=== PATIENT | female | born 1970 | race Hispanic/Latino ===

== ENCOUNTER 2021-04-25 01:03 | Emergency (ER) | payer SELFPAY ==
[~2021-04-25] VITALS: Ht 162.6 cm; Wt 81.6 kg
[2021-04-25] MEDS ORDERED: Morphine 4mg Syringe 4 MG/ML INJ IV STA (01:09)
[2021-04-25] MEDS ORDERED: SODIUM CHLORIDE 0.9% 1000ML 1,000 ML IV STA (01:09)
[2021-04-25] MEDS ORDERED: ONDANSETRON HCL INJ 2MG/ML 2ML 2 MG/ML VIAL IV STA (01:09)
[2021-04-25] MEDS ORDERED: Morphine 4mg Syringe 4 MG/ML INJ ONE (01:23)
[2021-04-25] MEDS ORDERED: ONDANSETRON HCL INJ 2MG/ML 2ML 2 MG/ML VIAL ONE (01:24)
[2021-04-25] MEDS ORDERED: SODIUM CHLORIDE 0.9% 1000ML 1,000 ML ONE (01:25)
[2021-04-25 01:26] LABS: BASOPHILS % 0.5 % (0.0-1.0); EOSINOPHILS # (AUTO) 0.1 (0.0-0.4); EOSINOPHILS % 0.8 % (0.0-6.0); HEMATOCRIT 42.5 % (34.2-44.1); HEMOGLOBIN 14.4 g/dL (12.0-16.0); LYMPHOCYTES # (AUTO) 1.4 (1.0-3.2); LYMPHOCYTES % 15.9 % (18.0-39.1); MEAN CORPUSCULAR HEMOGLOBIN 31.2 pg (28-32); MEAN CORPUSCULAR HGB CONC 33.9 g/dL (31-35); MONOCYTES # (AUTO) 0.6 (0.2-0.8); MONOCYTES % 6.8 % (4.4-11.3); NEUTROPHILS # (AUTO) 6.5 (2.1-6.9); NEUTROPHILS % 75.7 % (38.7-80.0); PLATELET COUNT 236 x10e3/uL (140-360); RED BLOOD COUNT 4.62 x10e6/uL (3.6-5.1)
[2021-04-25 01:46] LABS: ALBUMIN 4.1 g/dL (3.5-5.0); ALBUMIN/GLOBULIN RATIO 1.1 (0.8-2.0); ANION GAP 14.7 mmol/L (8-16); CREATININE, SERUM 1.05 mg/dL (0.57-1.11); POTASSIUM 3.7 mmol/L (3.5-5.1)
[2021-04-25 01:52] LABS: CREATINE KINASE MB 2.2 ng/mL (0-5.0)
[2021-04-25] MEDS ORDERED: KETOROLAC TROMETHAMINE 30 MG/ML VIAL IV STA (02:25)
[2021-04-25] MEDS ORDERED: FLOMAX0.4 MG PO (02:34)
[2021-04-25] MEDS ORDERED: ONDANSETRON ODT4 MG PO (02:34)
[2021-04-25] MEDS ORDERED: MOTRIN200 MG PO (02:34)
[2021-04-25] MEDS ORDERED: KETOROLAC TROMETHAMINE 30 MG/ML VIAL ONE (02:45)
== END 2021-04-25 03:07 | disposition home or self-care (01) ==
LOC: ER 01:17
DX: R10.12 Left upper quadrant pain (principal); N13.2 Hydronephrosis with renal and ureteral calculous obstruction; R11.2 Nausea with vomiting, unspecified
CPT/HCPCS: 36415; 74177; 80053; 82550; 82553; 83690; 83880; 84484; 85025; 93005; 99284; J1885; J2270; J2405; J7030

== ENCOUNTER 2025-01-22 18:28 | Emergency (ER) | payer SELFPAY ==
[~2025-01-22] VITALS: Ht 162.6 cm; Wt 81.6 kg
[~2025-01-22 18:28] MED LIST: FLOMAX0.4 MG PO; MOTRIN200 MG PO; ONDANSETRON ODT4 MG PO
[2025-01-22 20:01] VITALS: PULSE 72; RESP 18; TEMP 98.5
[2025-01-22] MEDS: ONDANSETRON HCL INJ 2MG/ML 2ML 2 MG/ML VIAL IV STA (20:54)
[2025-01-22] MEDS: Morphine 4mg INJECTION 4 MG/ML INJ IV STA (20:54)
[2025-01-22] MEDS: SODIUM CHLORIDE 0.9% 1000ML 1,000 ML IV STA (20:55)
[2025-01-22 21:03] LABS: BASOPHILS % 0.3 % (0.0-1.0); EOSINOPHILS % 0.2 % (0.0-6.0); LYMPHOCYTES % 20.4 % (18.0-39.1); MONOCYTES % 4.9 % (4.4-11.3); NEUTROPHILS % 73.7 % (38.7-80.0); RED CELL DISTRIBUTION WIDTH 12.5 % (11.7-14.4)
[2025-01-22 21:08] LABS: EST GLOMERULAR FILTRATION RATE 69 ML/MIN (>=60)
[2025-01-22] MEDS ORDERED: IOPAMIDOL 370 MG/ML 100 ML INFUS..BTL INJ ONE (21:27)
[2025-01-22 21:31] LABS: LEUKOCYTE ESTERASE ,URINE NEGATIVE (NEGATIVE); PROTEIN,URINE DIPSTICK 1+ (NEGATIVE); URINE UROBILINOGEN 0.2 mg/dL (0.2 - 1)
[2025-01-22 21:41] LABS: EPITHELIAL CELLS,URINE FEW /LPF; WBC,URINE (MAN) 0-5 /HPF (0-5)
[2025-01-22] MEDS ORDERED: KETOROLAC TROME10 MG PO (22:43)
[2025-01-22] MEDS ORDERED: CEPHALEXIN500 MG PO (22:43)
[2025-01-22] MEDS: KETOROLAC TROMETHAMINE 30 MG/ML VIAL IV STA (23:03)
[2025-01-22 23:06] VITALS: BP 141/73; PULSE 66; RESP 18; TEMP 98.6; O2SAT 98
== END 2025-01-22 23:10 | disposition home or self-care (01) ==
LOC: ER 18:31
DX: R10.31 Right lower quadrant pain (principal); R11.2 Nausea with vomiting, unspecified; N20.2 Calculus of kidney with calculus of ureter; K80.20 Calculus of gallbladder without cholecystitis without obstruction; R19.7 Diarrhea, unspecified; K76.0 Fatty (change of) liver, not elsewhere classified; E03.9 Hypothyroidism, unspecified
CPT/HCPCS: 36415; 74177; 80053; 81001; 82550; 83690; 84484; 85025; 99284; J1885; J2270; J2405; J7030; Q9967